=== PATIENT | female | born 1990 | race Caucasian/White ===

== ENCOUNTER 2017-10-22 05:09 | Inpatient (IN) | payer OTHER ==
[2017-10-22] MEDS ORDERED: ceFAZolin 2 GM in Premix Bag 1 BAG IV ONE (05:18)
[2017-10-22] MEDS ORDERED: Sodium Chloride 0.9% 10 ML Syringe FLUSH PRN (05:18)
[2017-10-22] MEDS ORDERED: Sodium Chloride 0.9% 2.5 ML Syringe FLUSH PRN (05:18)
[2017-10-22] MEDS ORDERED: Citric Acid/Sodium Citrate Solution 30 ML Cup PO SCH (05:30)
[2017-10-22] MEDS ORDERED: Oxytocin/0.9 % Sodium Chloride 30 UNIT/500 ML BAG IV SCH (05:30)
[2017-10-22] MEDS: Lactated Ringers 1,000 ML IV SCH ×2 (06:00→07:49)
[2017-10-22] MEDS ORDERED: Oxytocin 10 Units/1 ML SDV ONE ×2 (06:55→06:56)
[2017-10-22] MEDS ORDERED: Ondansetron 4 MG/2 ML SDV ONE ×2 (06:55→06:56)
[2017-10-22] MEDS ORDERED: Dexamethasone 4 MG/ML 5 ML MDV ONE ×2 (06:55→06:56)
[2017-10-22] MEDS ORDERED: ePHEDrine 50 MG/ML SDV ONE (06:55)
[2017-10-22] MEDS ORDERED: Nalbuphine 10 MG/1 ML Vial ONE ×2 (06:55→06:56)
[2017-10-22] MEDS ORDERED: Propofol 200 MG/20 ML SDV ONE (06:57)
[2017-10-22] MEDS ORDERED: Sodium Chloride 0.9% 20 ML ONE (07:00)
[2017-10-22] MEDS ORDERED: ceFAZolin 1 GM Vial ONE (07:00)
[2017-10-22] MEDS ORDERED: Morphine PF 1 MG/ML Amp ONE (07:06)
[2017-10-22] MEDS ORDERED: Nalbuphine 10 MG/1 ML Vial IVPUSH PRN ×2 (07:31→20:04)
--- NOTE | 2017-10-22 07:31 | PCM.PREANE ---
Preanesthetic Assessment - Anesthesia/Transfusion/Family Hx Anesthesia History: Prior Anesthesia Without Reaction Family History of Anesthesia Reaction: No Transfusion History: No Prior Transfusion(s) - Review of Systems General: No Symptoms Pulmonary: No Symptoms Cardiovascular: No Symptoms Gastrointestinal: No Symptoms Neurological: No Symptoms Other: Reports: None - Physical Assessment NPO Status Date: 10/22/17 NPO Status Time: 00:01 Height: 5 ft 4 in Weight: 200 lb ASA Class: 1 Mental Status: Alert & Oriented x3 Airway Class: Mallampati = 2 Dentition: Reports: Normal Dentition Thyro-Mental Finger Breadths: 3 Mouth Opening Finger Breadths: 3 ROM/Head Extension: Full Lungs: Clear to Auscultation, Normal Respiratory Effort Cardiovascular: Regular Rate, Regular Rhythm - Lab Values: Laboratory Last Values WBC 9.63 K/uL (4.0-11.0) 10/21/17 11:34 RBC 4.29 M/uL (4.30-5.90) L 10/21/17 11:34 Hgb 10.1 g/dL (12.0-16.0) L 10/21/17 11:34 Hct 32.9 % (36.0-46.0) L 10/21/17 11:34 MCV 76.7 fL (80.0-98.0) L 10/21/17 11:34 MCH 23.5 pg (27.0-32.0) L 10/21/17 11:34 MCHC 30.7 g/dL (31.0-37.0) L 10/21/17 11:34 RDW Std Deviation 46.9 fl (28.0-62.0) 10/21/17 11:34 RDW Coeff of Opal 17 % (11.0-15.0) H 10/21/17 11:34 Plt Count 140 K/uL (150-400) L 10/21/17 11:34 MPV 10.60 fL (7.40-12.00) 10/21/17 11:34 Nucleated RBC % 0.0 /100WBC 10/21/17 11:34 Nucleated RBCs # 0 K/uL 10/21/17 11:34 Blood Type B POSITIVE 10/21/17 11:34 Antibody Screen NEGATIVE 10/21/17 11:34 - Allergies Allergies/Adverse Reactions: Allergies Allergy/AdvReac Type Severity Reaction Status Date / Time No Known Allergies Allergy Verified 10/20/17 16:22 - Acknowledgements Anesthesia Type Planned: Spinal Pt an Appropriate Candidate for the Planned Anesthesia: Yes Alternatives and Risks of Anesthesia Discussed w Pt/Guardian: Yes Pt/Guardian Understands and Agrees with Anesthesia Plan: Yes Additional Comments: Duramorph spinal for post op analgesia planned. Obtained patient's informed consent for SAB. PreAnesthesia Questionnaire - Past Health History Medical/Surgical History: Denies Medical/Surgical History HEENT History: Reports: Allergic Rhinitis [employer] History: Reports: Endocrine/Metabolic History: Reports: Obesity/BMI 30+ - Past Surgical History HEENT Surgical History: Reports: Tonsillectomy - SUBSTANCE USE Smoking Status *Q: Former Smoker Tobacco Use Within Last Twelve Months: Cigarettes Second Hand Smoke Exposure: No Days Per Week of Alcohol Use: 1 Number of Drinks Per Day: 1 Total Drinks Per Week: 1 Recreational Drug Use History: No - HOME MEDS Home Medications: Home Meds PNV95/Ferrous Fumarate/FA [ Tablet] 1 tab PO DAILY 10/20/17 [History] - CURRENT (IN HOUSE) MEDS Current Meds: Current Medications Citric Acid/Sodium Citrate (Bicitra Solution) 30 ml PO .ONCE FARA Lactated Ringer's (Ringers, Lactated) 1,000 mls @ 500 mls/hr IV .BOLUS FARA Oxytocin/Sodium Chloride (Oxytocin 30 Unit/500 Ml-Ns) 30 unit in 500 mls @ 250 mls/hr IV TITRATE FARA Sodium Chloride (Saline Flush) 10 ml FLUSH ASDIRECTED PRN PRN Reason: Keep Vein Open Sodium Chloride (Saline Flush) 2.5 ml FLUSH ASDIRECTED PRN PRN Reason: Keep Vein Open Discontinued Medications Cefazolin Sodium (Ancef) Confirm Administered Dose 2 gm .ROUTE .STK-MED ONE Stop: 10/22/17 07:01 Dexamethasone (Dexamethasone) Confirm Administered Dose 20 mg .ROUTE .STK-MED ONE Stop: 10/22/17 06:56 Dexamethasone (Dexamethasone) Confirm Administered Dose 20 mg .ROUTE .STK-MED ONE Stop: 10/22/17 06:57 Ephedrine Sulfate (Ephedrine Sulfate) Confirm Administered Dose 50 mg .ROUTE .STK-MED ONE Stop: 10/22/17 06:56 Cefazolin Sodium/Dextrose 2 gm (/ Premix) 50 mls @ 100 mls/hr IV ONETIME ONE Stop: 10/22/17 05:47 Sodium Chloride (Normal Saline) Confirm Administered Dose 20 mls @ as directed .ROUTE .STK-MED ONE Stop: 10/22/17 07:01 Morphine Sulfate (Duramorph Pf) Confirm Administered Dose 1 mg .ROUTE .STK-MED ONE Stop: 10/22/17 07:07 Nalbuphine HCl (Nubain) Confirm Administered Dose 10 mg .ROUTE .ST-MED ONE Stop: 10/22/17 06:56 Nalbuphine HCl (Nubain) Confirm Administered Dose 10 mg .ROUTE .ST-MED ONE Stop: 10/22/17 06:57 Ondansetron HCl (Zofran) Confirm Administered Dose 4 mg .ROUTE .STK-MED ONE Stop: 10/22/17 06:56 Ondansetron HCl (Zofran) Confirm Administered Dose 4 mg .ROUTE .STK-MED ONE Stop: 10/22/17 06:57 Oxytocin (Pitocin) Confirm Administered Dose 30 unit .ROUTE .STK-MED ONE Stop: 10/22/17 06:56 Oxytocin (Pitocin) Confirm Administered Dose 30 unit .ROUTE .STK-MED ONE Stop: 10/22/17 06:57 Propofol (Diprivan 20 Ml) Confirm Administered Dose 200 mg .ROUTE .STK-MED ONE Stop: 10/22/17 06:58
[2017-10-22] MEDS ORDERED: Lanolin 100% Cream 7 GM Tube TOP PRN (08:57)
[2017-10-22] MEDS ORDERED: diphenhydrAMINE 50 MG/ML SDV IVPUSH PRN ×2 (08:57→20:04)
[2017-10-22] MEDS ORDERED: Simethicone 80 MG Tab.Chew PO PRN (08:57)
[2017-10-22] MEDS ORDERED: Aluminum Hydroxide/Magnesium Hydroxide/Simethicone Susp 30 ML Cup PO PRN (08:57)
[2017-10-22] MEDS ORDERED: Ondansetron 4 MG/2 ML SDV IV PRN (08:57)
[2017-10-22] MEDS ORDERED: Bisacodyl 10 MG Supp RECTAL PRN (08:57)
[2017-10-22] MEDS ORDERED: Lactated Ringers 1,000 ML IV SCH (09:00)
--- NOTE | 2017-10-22 09:08 | PCM.OPNOTE ---
- General Post-Op/Procedure Note Date of Surgery/Procedure: 10/22/17 Operative Procedure(s): Primary LTCS Findings: Term male APGARs 8, 9 weight 3950 gm. Intact placenta with 3V cord. Normal appearing pelvis. Fetus was direct OP presentation Pre Op Diagnosis: 39 week IUP. History of shoulder dystocia. LGA fetus Post-Op Diagnosis: Same Anesthesia Technique: Spinal Primary Surgeon: Sabine Hilario Fluid Replacement, Intraop: 1,500 EBL in mLs: 500 Condition: Good Free Text/Narrative:: Dictation [id number]
[2017-10-22] MEDS: Ketorolac 30 MG/ML SDV IVPUSH SCH ×3 (09:16→20:54)
--- NOTE | 2017-10-22 09:17 | PCM.POSTAN ---
POST ANESTHESIA ASSESSMENT - MENTAL STATUS Mental Status: Alert - RESPIRATORY Respiratory Status: Respiratory Rate WNL, Airway Patent, O2 Saturation Stable - CARDIOVASCULAR CV Status: Pulse Rate WNL, Blood Pressure Stable - GASTROINTESTINAL GI Status: No Symptoms - POST OP HYDRATION Hydration Status: Adequate & Stable - OBSERVATIONS Free Text/Narrative:: Sensory level T5, VSS, Awake and comfortable.
[2017-10-22] MEDS: Docusate Sodium 100 MG Cap PO SCH ×2 (10:39→20:54)
--- NOTE | 2017-10-22 14:25 | OR ---
SURGEON: Sabine Hilario M.D. DATE OF PROCEDURE: 10/22/2017 PREOPERATIVE DIAGNOSES: 1. Thirty-nine week intrauterine . 2. History of shoulder dystocia. 3. LGA fetus. POSTOPERATIVE DIAGNOSES: 1. Thirty-nine week intrauterine . 2. History of shoulder dystocia. 3. LGA fetus. PROCEDURE: Primary low transverse section. ANESTHESIA: Spinal. ESTIMATED BLOOD LOSS: 500 mL. FLUIDS: 1500 mL crystalloid. COMPLICATIONS: None. FINDINGS: Term male, score 8 at 1 minute, 9 at 5 minutes. Weight 3950 g, intact placenta, 3-vessel cord. Normal appearing pelvis. Fetus was in direct OP position at delivery. DISPOSITION: The patient to PACU, stable. to nursery. PROCEDURE DETAILS: Zuri is a 27-year-old, G2, P1, at 39 and 6 weeks' gestational age, presents this morning for a scheduled elective primary delivery due to history of shoulder dystocia. This fetus was also LGA fetus. Risks of attempting vaginal delivery with no option operative vaginal delivery or proceeding with primary section has been discussed with the patient and her , and they have opted to proceed with a primary delivery. The patient was taken to the operating room, where she underwent spinal anesthetic, was placed in dorsal lithotomy position leftward tilt, SCDs to lower extremities, Haley to gravity, was prepped and draped in the usual sterile fashion, received Ancef prophylactically. Time-out was performed. After being prepped and draped in usual sterile fashion, anesthesia was tested and found to be adequate. Pfannenstiel skin incision was now created, carried down to the level of the rectus fascia, incised in midline, lateralized on either side sharply and bluntly. The superior aspect of fascia was tented upward, dissected sharply and bluntly from the underlying muscle. In a similar aspect, this was performed in the inferior aspect of the fascia. Rectus muscles and peritoneum were in the midline. Peritoneum was entered. Rectus muscles and peritoneum were now lateralized bluntly. Uterine position and position palpated. Self-retaining retractor gently placed. Uterovesical reflection was visualized. Bladder flap was created sharply and bluntly. Bladder was mobilized away from lower uterine segment. Low transverse hysterotomy was now performed. Uterine cavity was entered with the blunt end of the scalpel. Hysterotomy was lateralized bluntly. Amniotomy was performed. Clear fluid was returned. found to be direct OP. Head was flexed and was delivered followed by fundal pressure, which delivered remainder of the body without difficulty. Infant's oropharynx and nares bulb suctioned. Cord was clamped x2. Infant was crying and vigorous. Handed off to attending nursing staff. Cord arterial, cord venous, cord blood sampling was obtained. The placenta was now delivered. Uterine cavity was cleared of all clot and debris. Hysterotomy was repaired using 0 Vicryl in continuous running locked fashion followed by a re-imbricating layer. Posterior aspect of the uterus inspected, no defects or hematomas found to be forming. Regions were well irrigated, suction dried. Uterus was returned to the abdominal cavity. Colonic gutters were cleared of all clot and debris, well irrigated suction dried. Hysterotomy was once again inspected. There was an area of oozing along the right lateral side, was replicated with [id number] suture. Hemostasis thereafter evident. Self-retaining retractor gently removed. Bladder blade was placed. Hysterotomy once again inspected, found to be hemostatic. The rectus muscle and peritoneum were now reapproximated using 0 Vicryl in inverted mattress suture technique. Anterior aspect of the muscle, posterior aspect of the fascia closely inspected. Any areas of oozing were cauterized. The rectus fascia was reapproximated using 0 Vicryl in continuous running locked fashion beginning laterally and tied in the midline. Subcutaneous tissue was well irrigated suction dried. Any areas of oozing were cauterized. The skin was reapproximated using 3-0 Vicryl on a Sergo needle in subcuticular fashion followed by Mastisol and half-inch Steri-Strips for imbrication. Sponge, instrument, and needle counts correct x2. The uterus remains firm. Hemostasis remained evident. The patient will go to PACU in stable condition. Infant to nursery. IRCK / NAGI /[id number]
[2017-10-22] MEDS ORDERED: Naloxone 0.4 MG/ML Syringe IVPUSH PRN (20:04)
[2017-10-22] MEDS ORDERED: fentaNYL 100 MCG/2 ML SDV IVPUSH PRN (20:05)
[2017-10-23] MEDS: Ketorolac 30 MG/ML SDV IVPUSH SCH ×3 (02:58→08:44)
[2017-10-23] MEDS: Docusate Sodium 100 MG Cap PO SCH ×2 (08:31→20:53)
--- NOTE | 2017-10-23 08:31 | PCM.PNPP ---
- General Info Date of Service: 10/23/17 Functional Status: Reports: Pain Controlled, Tolerating Diet, Other (feeling overwhelmed and exhausted, trouble ) - Review of Systems General: Reports: No Symptoms HEENT: Reports: No Symptoms Pulmonary: Reports: No Symptoms Cardiovascular: Reports: No Symptoms Gastrointestinal: Reports: No Symptoms Genitourinary: Reports: No Symptoms Musculoskeletal: Reports: No Symptoms Skin: Reports: No Symptoms Neurological: Reports: No Symptoms Psychiatric: Reports: Other - Patient Data Vital Signs - Most Recent: Last Vital Signs Temp 36.9 C 10/23/17 07:00 Pulse 88 10/23/17 07:00 Resp 20 10/23/17 08:00 BP 115/64 10/23/17 07:00 Pulse Ox 99 10/23/17 08:00 Weight - Most Recent: 90.718 kg I&O - Last 24 Hours: Intake & Output 10/22/17 10/23/17 10/23/17 22:59 06:59 14:59 Intake Total 995 700 Output Total 800 Balance 995 -100 Lab Results - Last 24 Hours: Laboratory Results - last 24 hr 10/22/17 10/23/17 Range/Units 08:27 05:40 Hgb 8.2 L (12.0-16.0) g/dL Hct 26.7 L (36.0-46.0) % Cord VBG pH 7.338 (7.25-7.45) Cord VBG Base Excess -4 (-10--2) Med Orders - Current: Current Medications Al Hydroxide/Mg Hydroxide (Mag-Al Plus) 30 ml PO Q8H PRN PRN Reason: Heartburn Bisacodyl (Dulcolax) 10 mg RECTAL .ONCE PRN PRN Reason: Constipation Citric Acid/Sodium Citrate (Bicitra Solution) 30 ml PO .ONCE FARA Last Admin: 10/22/17 07:51 Dose: 30 ml Diphenhydramine HCl (Benadryl) 25 mg IVPUSH Q6H PRN PRN Reason: Itching or Nausea Diphenhydramine HCl (Benadryl) 25 mg IVPUSH Q4H PRN PRN Reason: Itching Stop: 10/23/17 20:04 Docusate Sodium (Colace) 100 mg PO BID [facility] Last Admin: 10/22/17 20:54 Dose: 100 mg Emollient Ointment (Lansinoh Hpa) 0 gm TOP ASDIRECTED PRN PRN Reason: Sore Nipples Fentanyl (Sublimaze) 50 mcg IVPUSH Q45M PRN PRN Reason: Pain (severe 7-10) Stop: 10/23/17 20:05 Lactated Ringer's (Ringers, Lactated) 1,000 mls @ 500 mls/hr IV .BOLUS [facility] Last Admin: 10/22/17 07:49 Dose: 500 mls/hr Oxytocin/Sodium Chloride (Oxytocin 30 Unit/500 Ml-Ns) 30 unit in 500 mls @ 250 mls/hr IV TITRATE FARA Lactated Ringer's (Ringers, Lactated) 1,000 mls @ 125 mls/hr IV ASDIRECTED [facility] Ibuprofen (Motrin) 800 mg PO Q8H PRN PRN Reason: mild pain or fever Ketorolac Tromethamine (Toradol) 30 mg IVPUSH Q6H [facility] Stop: 10/23/17 09:01 Last Admin: 10/23/17 02:58 Dose: 30 mg Nalbuphine HCl (Nubain) 5 mg IVPUSH Q3H PRN PRN Reason: itch,n/v,pain,can't void Nalbuphine HCl (Nubain) 5 mg IVPUSH Q3H PRN PRN Reason: Pruritis Stop: 10/23/17 20:04 Naloxone HCl (Narcan) 0.1 mg IVPUSH ONETIME PRN PRN Reason: Respiratory Depression Stop: 10/23/17 20:04 Ondansetron HCl (Zofran) 4 mg IV Q4H PRN PRN Reason: Nausea/Vomiting Oxycodone/Acetaminophen (Percocet 325-5 Mg) 1 tab PO Q4H PRN PRN Reason: Pain (moderate 4-6) Oxycodone/Acetaminophen (Percocet 325-5 Mg) 2 tab PO Q4H PRN PRN Reason: Pain (moderate 4-6) Simethicone (Simethicone) 80 mg PO Q4H PRN PRN Reason: Gas Sodium Chloride (Saline Flush) 10 ml FLUSH ASDIRECTED PRN PRN Reason: Keep Vein Open Sodium Chloride (Saline Flush) 2.5 ml FLUSH ASDIRECTED PRN PRN Reason: Keep Vein Open Discontinued Medications Cefazolin Sodium (Ancef) Confirm Administered Dose 2 gm .ROUTE .STK-MED ONE Stop: 10/22/17 07:01 Dexamethasone (Dexamethasone) Confirm Administered Dose 20 mg .ROUTE .STK-MED ONE Stop: 10/22/17 06:56 Dexamethasone (Dexamethasone) Confirm Administered Dose 20 mg .ROUTE .STK-MED ONE Stop: 10/22/17 06:57 Ephedrine Sulfate (Ephedrine Sulfate) Confirm Administered Dose 50 mg .ROUTE .STK-MED ONE Stop: 10/22/17 06:56 Cefazolin Sodium/Dextrose 2 gm (/ Premix) 50 mls @ 100 mls/hr IV ONETIME ONE Stop: 10/22/17 05:47 Last Admin: 10/22/17 10:41 Dose: Not Given Sodium Chloride (Normal Saline) Confirm Administered Dose 20 mls @ as directed .ROUTE .STK-MED ONE Stop: 10/22/17 07:01 Morphine Sulfate (Duramorph Pf) Confirm Administered Dose 1 mg .ROUTE .STK-MED ONE Stop: 10/22/17 07:07 Nalbuphine HCl (Nubain) Confirm Administered Dose 10 mg .ROUTE .STK-MED ONE Stop: 10/22/17 06:56 Nalbuphine HCl (Nubain) Confirm Administered Dose 10 mg .ROUTE .STK-MED ONE Stop: 10/22/17 06:57 Ondansetron HCl (Zofran) Confirm Administered Dose 4 mg .ROUTE .STK-MED ONE Stop: 10/22/17 06:56 Ondansetron HCl (Zofran) Confirm Administered Dose 4 mg .ROUTE .STK-MED ONE Stop: 10/22/17 06:57 Oxytocin (Pitocin) Confirm Administered Dose 30 unit .ROUTE .STK-MED ONE Stop: 10/22/17 06:56 Oxytocin (Pitocin) Confirm Administered Dose 30 unit .ROUTE .STK-MED ONE Stop: 10/22/17 06:57 Propofol (Diprivan 20 Ml) Confirm Administered Dose 200 mg .ROUTE .STK-MED ONE Stop: 10/22/17 06:58 - Interaction Disposition, : [place] in Room with Family Infant Interaction: Holding Infant Infant Feeding: Attempted ; Nursed Fair/Poor Support Person: Significant Other - Recovery Exam Fundal Tone: Firm Fundal Level: 2 Fingerbreadths Below Umbilicus Fundal Placement: Midline Lochia Amount: Small, Clots/Tissue Present Lochia Color: Rubra/Red Perineum Description: Intact, Minimal Bruising/Swelling Episiotomy/Laceration: None Bladder Status: Indwelling Catheter in Place Urinary Elimination: Indwelling Catheter - Exam General: Alert, Oriented HEENT: Pupils Equal Neck: Supple Lungs: Clear to Auscultation, Normal Respiratory Effort Cardiovascular: Regular Rate, Regular Rhythm GI/Abdominal Exam: Normal Bowel Sounds, Soft, Non-Tender, No Mass Extremities: Normal Inspection, Non-Tender. No: No Pedal Edema (1+) Skin: Warm, Dry, Intact Wound/Incisions: Dressing Dry and Intact Neurological: No New Focal Deficit Psy/Mental Status: Alert, Normal Affect, Normal Mood - Problem List & Annotations (1) delivery delivered SNOMED Code(s): 063307406 Code(s): O82 - ENCOUNTER FOR DELIVERY WITHOUT INDICATION Status: Acute Current Visit: Yes - Problem List Review Problem List Initiated/Reviewed/Updated: Yes - Assessment Assessment:: POD#1 after primary for CPD, stable, tearful, did not get any sleep last night, overwhelmed. States she feels exhausted but not depressed. Pain is well controlled. - Plan Plan:: Continue postoperative care, baby to nursery so she can nap this am, increase activity after lunch.
[2017-10-23] MEDS ORDERED: Ketorolac 30 MG/ML SDV IM ONE (09:00)
--- NOTE | 2017-10-23 09:05 | PCM48HPAN ---
Post Anesthesia Note - EVALUATION WITHIN 48HRS OF ANESTHETIC Vital Signs in Normal Range: Yes Patient Participated in Evaluation: Yes Respiratory Function Stable: Yes Airway Patent: Yes Cardiovascular Function Stable: Yes Hydration Status Stable: Yes Pain Control Satisfactory: Yes Nausea and Vomiting Control Satisfactory: Yes Mental Status Recovered: Yes
[2017-10-23] MEDS: Acetaminophen/oxyCODONE 325-5 MG Tab PO PRN ×3 (14:18→22:23)
[2017-10-23] MEDS: Ibuprofen 800 MG Tab PO PRN (17:24)
[2017-10-24] MEDS: Ibuprofen 800 MG Tab PO PRN (03:03)
[2017-10-24] MEDS: Acetaminophen/oxyCODONE 325-5 MG Tab PO PRN ×2 (04:33→10:03)
[2017-10-24 09:57] VITALS: BP 110/66
[2017-10-24] MEDS: Docusate Sodium 100 MG Cap PO SCH (10:03)
--- NOTE | 2017-10-24 10:50 | PCM.PNPP ---
- General Info Date of Service: 10/24/17 Functional Status: Reports: Pain Controlled, Tolerating Diet, Ambulating - Review of Systems General: Reports: No Symptoms HEENT: Reports: No Symptoms Pulmonary: Reports: No Symptoms Cardiovascular: Reports: No Symptoms Gastrointestinal: Reports: No Symptoms Genitourinary: Reports: No Symptoms Musculoskeletal: Reports: No Symptoms Skin: Reports: No Symptoms Neurological: Reports: No Symptoms Psychiatric: Reports: No Symptoms - Patient Data Vital Signs - Most Recent: Last Vital Signs Temp 36.7 C 10/24/17 09:55 Pulse 81 10/24/17 09:55 Resp 18 10/24/17 09:55 BP 110/66 10/24/17 09:55 Pulse Ox 96 10/24/17 09:55 Weight - Most Recent: 90.718 kg Med Orders - Current: Current Medications Al Hydroxide/Mg Hydroxide (Mag-Al Plus) 30 ml PO Q8H PRN PRN Reason: Heartburn Bisacodyl (Dulcolax) 10 mg RECTAL .ONCE PRN PRN Reason: Constipation Citric Acid/Sodium Citrate (Bicitra Solution) 30 ml PO .ONCE FARA Last Admin: 10/22/17 07:51 Dose: 30 ml Diphenhydramine HCl (Benadryl) 25 mg IVPUSH Q6H PRN PRN Reason: Itching or Nausea Docusate Sodium (Colace) 100 mg PO BID [facility] Last Admin: 10/24/17 10:03 Dose: 100 mg Emollient Ointment (Lansinoh Hpa) 0 gm TOP ASDIRECTED PRN PRN Reason: Sore Nipples Lactated Ringer's (Ringers, Lactated) 1,000 mls @ 500 mls/hr IV .BOLUS [facility] Last Admin: 10/22/17 07:49 Dose: 500 mls/hr Oxytocin/Sodium Chloride (Oxytocin 30 Unit/500 Ml-Ns) 30 unit in 500 mls @ 250 mls/hr IV TITRATE FARA Lactated Ringer's (Ringers, Lactated) 1,000 mls @ 125 mls/hr IV ASDIRECTED [facility] Ibuprofen (Motrin) 800 mg PO Q8H PRN PRN Reason: mild pain or fever Last Admin: 10/24/17 03:03 Dose: 800 mg Nalbuphine HCl (Nubain) 5 mg IVPUSH Q3H PRN PRN Reason: itch,n/v,pain,can't void Ondansetron HCl (Zofran) 4 mg IV Q4H PRN PRN Reason: Nausea/Vomiting Oxycodone/Acetaminophen (Percocet 325-5 Mg) 1 tab PO Q4H PRN PRN Reason: Pain (moderate 4-6) Last Admin: 10/24/17 10:03 Dose: 1 tab Oxycodone/Acetaminophen (Percocet 325-5 Mg) 2 tab PO Q4H PRN PRN Reason: Pain (moderate 4-6) Last Admin: 10/23/17 22:23 Dose: 2 tab Simethicone (Simethicone) 80 mg PO Q4H PRN PRN Reason: Gas Sodium Chloride (Saline Flush) 10 ml FLUSH ASDIRECTED PRN PRN Reason: Keep Vein Open Sodium Chloride (Saline Flush) 2.5 ml FLUSH ASDIRECTED PRN PRN Reason: Keep Vein Open Last Admin: 10/23/17 08:33 Dose: 2.5 ml Discontinued Medications Cefazolin Sodium (Ancef) Confirm Administered Dose 2 gm .ROUTE .STK-MED ONE Stop: 10/22/17 07:01 Dexamethasone (Dexamethasone) Confirm Administered Dose 20 mg .ROUTE .STK-MED ONE Stop: 10/22/17 06:56 Dexamethasone (Dexamethasone) Confirm Administered Dose 20 mg .ROUTE .STK-MED ONE Stop: 10/22/17 06:57 Diphenhydramine HCl (Benadryl) 25 mg IVPUSH Q4H PRN PRN Reason: Itching Stop: 10/23/17 20:04 Ephedrine Sulfate (Ephedrine Sulfate) Confirm Administered Dose 50 mg .ROUTE .STK-MED ONE Stop: 10/22/17 06:56 Fentanyl (Sublimaze) 50 mcg IVPUSH Q45M PRN PRN Reason: Pain (severe 7-10) Stop: 10/23/17 20:05 Cefazolin Sodium/Dextrose 2 gm (/ Premix) 50 mls @ 100 mls/hr IV ONETIME ONE Stop: 10/22/17 05:47 Last Admin: 10/22/17 10:41 Dose: Not Given Sodium Chloride (Normal Saline) Confirm Administered Dose 20 mls @ as directed .ROUTE .STK-MED ONE Stop: 10/22/17 07:01 Ketorolac Tromethamine (Toradol) 30 mg IVPUSH Q6H [facility] Stop: 10/23/17 09:01 Last Admin: 10/23/17 08:44 Dose: Not Given Ketorolac Tromethamine (Toradol) 30 mg IM ONETIME ONE Stop: 10/23/17 09:01 Last Admin: 10/23/17 08:58 Dose: 30 mg Morphine Sulfate (Duramorph Pf) Confirm Administered Dose 1 mg .ROUTE .STK-MED ONE Stop: 10/22/17 07:07 Nalbuphine HCl (Nubain) Confirm Administered Dose 10 mg .ROUTE .STK-MED ONE Stop: 10/22/17 06:56 Nalbuphine HCl (Nubain) Confirm Administered Dose 10 mg .ROUTE .STK-MED ONE Stop: 10/22/17 06:57 Nalbuphine HCl (Nubain) 5 mg IVPUSH Q3H PRN PRN Reason: Pruritis Stop: 10/23/17 20:04 Naloxone HCl (Narcan) 0.1 mg IVPUSH ONETIME PRN PRN Reason: Respiratory Depression Stop: 10/23/17 20:04 Ondansetron HCl (Zofran) Confirm Administered Dose 4 mg .ROUTE .STK-MED ONE Stop: 10/22/17 06:56 Ondansetron HCl (Zofran) Confirm Administered Dose 4 mg .ROUTE .STK-MED ONE Stop: 10/22/17 06:57 Oxytocin (Pitocin) Confirm Administered Dose 30 unit .ROUTE .STK-MED ONE Stop: 10/22/17 06:56 Oxytocin (Pitocin) Confirm Administered Dose 30 unit .ROUTE .STK-MED ONE Stop: 10/22/17 06:57 Propofol (Diprivan 20 Ml) Confirm Administered Dose 200 mg .ROUTE .STK-MED ONE Stop: 10/22/17 06:58 - Interaction Disposition, : [place] in Room with Family Infant Interaction: Holding Infant Feeding: Attempted ; Nursed Fair/Poor Support Person: Significant Other - Recovery Exam Fundal Tone: Firm Fundal Level: At Umbilicus Fundal Placement: Midline Lochia Amount: Scant Lochia Color: Rubra/Red Perineum Description: Intact, Minimal Bruising/Swelling Episiotomy/Laceration: None Bladder Status: Voiding Urinary Elimination: Voided - Exam General: Alert, Oriented HEENT: Pupils Equal Neck: Supple Lungs: Clear to Auscultation, Normal Respiratory Effort Cardiovascular: Regular Rate, Regular Rhythm GI/Abdominal Exam: Normal Bowel Sounds, Soft, Non-Tender Extremities: Normal Inspection, Non-Tender, No Pedal Edema Skin: Warm, Dry, Intact Wound/Incisions: Healing Well Neurological: No New Focal Deficit Psy/Mental Status: Alert, Normal Affect, Normal Mood - Problem List & Annotations (1) delivery delivered SNOMED Code(s): 677025763 Code(s): O82 - ENCOUNTER FOR DELIVERY WITHOUT INDICATION Status: Acute Current Visit: Yes - Problem List Review Problem List Initiated/Reviewed/Updated: Yes - Assessment Assessment:: POD#2 after primary for CPD, stable, stable, mood improved, pumping. Pain is well controlled. Tolerating diet, would like to go home. - Plan Plan:: Dismiss to home, discharge instructions reviewed.
== END 2017-10-24 11:40 | disposition home or self-care (01) | DRG 766 ==
LOC: MW.OB 05:09
PROVIDERS: ADMIT Obstetrics & Gynecology; ATTEND Obstetrics & Gynecology
PROC: 10D00Z1 Extraction of Products of Conception, Low, Open Approach (ICD-10-PCS; principal; 2017-10-22)
DX: O36.63X0 Maternal care for excessive fetal growth, third trimester, not applicable or unspecified (principal); Z3A.39 39 weeks gestation of pregnancy; Z37.0 Single live birth
CPT/HCPCS: 01961; 36415; 82803; 85014; 85018; 85027; 86850; 86900; 86901; A9270-GY; J0690; J1100; J1885; J2274; J2300; J2405; J2590; J2704; J7120